=== PATIENT | male | born 1965 | race Caucasian/White ===

== ENCOUNTER 2016-04-24 15:58 | Inpatient (IN) | payer OTHER ==
[~2016-04-24] VITALS: Ht 162.6 cm; Wt 78.9 kg
--- NOTE | 2016-04-24 16:14 | NUR ---
Informed waiting has been performed.
--- NOTE | 2016-04-24 16:14 | NUR ---
TRIAGE: PT SENT TO ER BY DR DRAKE FOR ABNORMAL LAB VALUES. STATES HIS BLOOD COUNT WAS 23. REPORTS FEELING DIZZY, WEAK AND NO ENERGY X COUPLE MONTHS. HX OF ANEMIA BUT HAS NEVER REQUIRED BLOOD TRANSFUSION IN THE PAST.
--- NOTE | 2016-04-24 16:45 | NUR ---
PT AMB TO ROOM 10, CHANGED INTO GOWN.
--- NOTE | 2016-04-24 16:50 | NUR ---
BOOKER LUCAS IN FOR EVAL.
[2016-04-24] MEDS ORDERED: LISINOPRIL-HCT1 EAC1 PO (17:05)
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
[2016-04-24] MEDS ORDERED: PROAIR HFA8.5 GM INH (17:06)
[2016-04-24] MEDS ORDERED: SPIRIVA18 MCG INH (17:07)
[2016-04-24] MEDS ORDERED: PROTONIX40 M3 PO (17:08)
[2016-04-24 17:45] LABS: PT 12.1 SEC (9.4-12.5); PTT 23 SEC (25-37)
[2016-04-24 17:56] LABS: HEMATOCRIT 20.5 % (42-52); MEAN CORPUSCULAR HGB 14.9 PG (27.0-31.0); MEAN CORPUSCULAR HGB CONC 27.3 G/DL (33.0-37.0); MEAN CORPUSCULAR VOLUME 54.4 FL (80.0-94.0); MEAN PLATELET VOLUME 7.8 FL (7.4-10.4); PLATELET COUNT 232 /CUMM (130-400); RBC DISTRIBUTION WIDTH 20.9 % (11.5-14.5); RED BLOOD CELL CT 3.76 /CUMM (4.70-6.10); WHITE BLOOD CELL COUNT 4.2 /CUMM (4.8-10.8)
--- NOTE | 2016-04-24 18:09 | NUR ---
CRITICAL TEST RESULTS [id number] MARTELL MARCOS 50 M TESTS AND RESULTS: HGB 5.6 Results received and read back by: LIAM MCCALL Results received date and time: 04/24/16 180 The following provider was notified of the results, and read the results back: АЛЕКСАНДР CELESTE Notified date and time: 04/24/16 at 1809
--- NOTE | 2016-04-24 18:35 | NUR ---
FIRST UNIT [facility] INFUSING.
--- NOTE | 2016-04-24 19:00 | NUR ---
PT TO ROOM 18 VIA STRETCHER. MOVED TO HOSPITAL BED. REPORT GIVEN TO ANN MARIE FLORES.
--- NOTE | 2016-04-24 19:01 | NUR ---
PROVIDED CLEAR LIQUIDS
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
--- NOTE | 2016-04-24 21:25 | Admission Certification ---
Admission Certification Certification Statement - As attending physician, I certify that at the time of - admission, based on clinical presentation, severity of - symptoms, need for further diagnostic testing and - therapeutic interventions, and risk of adverse outcomes - without in-hospital treatment, in my clinical assessment, - this patient requires an acute hospital stay for a minimum - of two nights or longer. I have also considered psychsocial - factors such as support system, advanced age, financial - issues, cognitive issues, and failed out-patient treatments, - past re-admission history, safety of patient, and lack of - compliance as applicable. Specific rationale supporting this admission is: Symptomatic anemia, acute on chronic microcytic anemia with iron deficiency.
[2016-04-24 23:16] VITALS: BP 141/80
[2016-04-24 23:58] LABS: HEMATOCRIT 21.2 % (42-52); MEAN PLATELET VOLUME 8.1 FL (7.4-10.4); PLATELET COUNT 195 /CUMM (130-400); RBC DISTRIBUTION WIDTH 25.1 % (11.5-14.5); RED BLOOD CELL CT 3.62 /CUMM (4.70-6.10); WHITE BLOOD CELL COUNT 4.1 /CUMM (4.8-10.8)
[2016-04-25] VITALS: BP 132/86
[2016-04-25 00:04] LABS: MEAN CORPUSCULAR HGB 16.9 PG (27.0-31.0); MEAN CORPUSCULAR VOLUME 58.4 FL (80.0-94.0)
--- NOTE | 2016-04-25 02:11 | NUR ---
RESPIRATORY THERAPY NOTE: RECIEVED REQUEST FOR NOCTURNAL NPPV, FOUND PATIENT SLEEPING, POX = 98% ON ROOM AIR UPON AROUSAL, PATIENT NOTES HX OF MATILDE & HOME USE OF NPPV, UNCLEAR TO SETTINGS, ON FURTHER INQUIRY PATIENT NOTES HIS DEVICE HAS HUMIDITY & THAT HIS MOUTH IS ALREADY DRY, THIS COSMETIC SALES ALLUDED TO THE FACT HE MIGHT BRING HIS PERSONAL DEVICE IN IF HE DESIRED HUMIDITY @ WHICH POINT PATIENT NOTED HIS DEVICE IS NOT WORKING & HE HASN'T USED IT IN MONTHS, PATIENT OPTED TO REMAINS OFF NPPV @ THIS TIME.
--- NOTE | 2016-04-25 05:41 | NUR ---
AT 0006 HCT:21.2 HGB: 6.1. MD RODRIGUEZ MADE AWARE. 1 UNIT BLOOD ORDERED AND ADMINISTERED. PRE-VITAL SIGNS 98.2, 76, 20, 142/81. 15 MIN VITALS 97.9, 72, 135/82, 20, NO ADVERSE REACTIONS. POST VITALS: 97.7, 78, 20, 142/78.
[2016-04-25 06:02] VITALS: BP 143/89
--- NOTE | 2016-04-25 06:23 | PN- Housestaff ---
DAYAN ANDINO,MEJIA 04/25/16 0622: Subjective Follow-up For: Acute blood loss anemia Subjective: Patient seen and examined at bedside. He is alert, awake and oriented x3, resting comfortably in bed, waiting for EGD. Repeatedly complaining of hunger and stating that he hasn't eaten since yesterday. Patient currently denies any n /v, hematemesis, hemoptysis, melena, any stool changes. He is not sure whether his dizziness and weakness have improved as he has been bed bound since the admission. Currently getting transfused (3rd unit). Vitals stable. Review of Systems Constitutional: Reports: see HPI. Objective Last 24 Hrs of Vital Signs/I&O Vital Signs Date Time Temp Pulse Resp B/P Pulse O2 O2 Flow FiO2 Ox Delivery Rate 04/25 0720 97.8 71 98 143/89 04/25 0602 97.8 71 20 143/89 98 Room Air 04/25 0000 97.9 76 20 132/86 04/24 2316 97.4 76 16 141/80 100 04/24 2249 97.4 76 16 141/80 100 Room Air 04/24 1850 98.0 80 20 131/68 100 Room Air 04/24 1835 98.4 95 20 126/77 100 Room Air 04/24 1610 98.8 97 20 129/73 97 Room Air Intake & Output 04/25 1600 04/25 0800 04/25 0000 Intake Total 660 Output Total 1000 Balance -340 Intake, IV 660 Output, Urine 1000 Patient 78.925 kg Weight Physical Exam General Appearance: Alert, Oriented X3, Cooperative, No Acute Distress Other Physical Findings: Skin Many tattoos , healed abdominal scars HEENT Atraumatic, PERRLA, EOMI, pale conjunctiva, lips red most likely due to sl[place] ice Neck Supple, No JVD, +2 Carotid Pulse wo Bruit Lymphatic Axillary nl, Cervical nl Cardiovascular Regular Rate, Normal S1, Normal S2, No Murmurs, Gallops, Rubs Lungs Clear to Auscultation, Normal Air Movement Abdomen Normal Bowel Sounds, Soft, No Tenderness, no anal fissures, stool guaiac negative Neurological Normal Speech Extremities No Cyanosis, No Edema, Normal Pulses, No Tenderness/Swelling, normal cap refill Current Medications: Current Medications Sig/Jc Start time Last Medication Dose Route Stop Time Status Admin Acetaminophen 650 MG Q8P PRN 04/25 0045 AC PO Acetaminophen 650 MG Q8P PRN 04/24 2114 DC PO Acetaminophen 1,000 MG Q12P PRN 04/24 2114 DC IV Chlorhexidine 1 GM .STK-MED ONE 04/25 1254 DC Gluconate TOP 04/25 1255 Dextrose/Sodium 1,000 ML Q20H 04/25 1200 AC Chloride IV Morphine Sulfate 4 MG Q6-PRN PRN 04/24 2114 AC IV Nicotine 0 .STK-MED ONE 04/24 2218 DC TOP Nicotine 14 MG DAILY 04/24 2199 AC TOP Ondansetron HCl 4 MG Q8P PRN 04/24 2114 AC IV Oxycodone HCl 5 MG Q6 PRN 04/25 44 AC PO Pantoprazole Sodium 40 MG BID 04/25 2199 AC IV Pantoprazole Sodium 40 MG DAILY 04/25 1000 DC 04/25 IV 0932 Pantoprazole Sodium 0 .STK-MED ONE 04/24 1724 DC IV Pantoprazole Sodium 40 MG ONCE ONE 04/24 1715 DC 04/24 IV 04/24 1716 1725 Sodium Chloride 1,000 ML .Q10H 04/24 2114 DC 04/25 IV 0848 Tiotropium [place] 1 PUF DAILY 04/25 1000 AC 04/25 INH 0932 Last 24 Hrs of Lab/Ramiro Results Last 24 Hrs of Labs/Mics: Laboratory Tests 04/25/16 0628: Anion Gap 12, Estimated GFR > 60, BUN/Creatinine Ratio 15.7, CBC w Diff MAN DIFF ORDERED, RBC 4.12 L, MCV 60.2 L, MCH 17.8 L, RDW 26.9 H, MPV 7.7, Segmented Neutrophils 62, Lymphocytes 25, Monocytes 8, Eosinophils 5, Nucleated RBCs 1 H, Platelet Estimate ADEQUATE, Polychromasia 1+, Hypochromic-Microcytic 2+, Poikilocytosis 2+, Anisocytosis 3+, Microcytic Cells 3+, Ovalocytes 1+, Stomatocytes FEW, Elliptocytes 1+, PUBS MCHC 29.5 L, Fld Total RBCs Counted 100 04/24/16 2340: CBC w Diff MAN DIFF ORDERED, RBC 3.62 L, MCV 58.4 L, MCH 16.9 L, RDW 25.1 H, MPV 8.1, Segmented Neutrophils 48, Lymphocytes 37, Monocytes 10 H, Eosinophils 5, Platelet Estimate ADEQUATE, Polychromasia 1+, Hypochromic-Microcytic 2+, Poikilocytosis 3+, Anisocytosis 3+, Microcytic Cells 3+, Ovalocytes 1+, Stomatocytes 1+, Elliptocytes 1+, PUBS MCHC 29.0 L, Retic Count 1.82, Fld Total RBCs Counted 100 04/24/16 2310: Urine Opiates Screen < 100.00, Methadone Screen < 40, Barbiturate Screen < 60, Ur Phencyclidine Scrn < 6.00, Amphetamines Screen < 100, U Benzodiazepines Scrn < 85, Urine Cocaine Screen < 50, Urine Cannabis Screen > 80.00 H, Urine Color YEL, Urine Clarity CLEAR, Urine pH 6.0, Ur Specific [place] 1.025, Urine Protein NEG, Urine Ketones NEG, Urine Nitrite NEG, Urine Bilirubin NEG, Urine Urobilinogen 0.2, Ur Leukocyte Esterase NEG, Ur Microscopic EXAM NOT REQUIRED, Urine Hemoglobin NEG, Urine Glucose NEG 04/24/16 1710: Hemoglobin A1c Pending 04/24/16 1710: Anion Gap 15, Estimated GFR > 60, BUN/Creatinine Ratio 18.8, Glucose 99, Calcium 9.1, Iron < 10 L, TIBC 537 H, Ferritin 3.1 L, Total Bilirubin 0.6, AST 21, ALT 11 L, Alkaline Phosphatase 46, Lactate Dehydrogenase 385, Total Protein 7.4 , Albumin 4.1, Globulin 3.3, Albumin/Globulin Ratio 1.2, Vitamin B12 256, Folate 11.5, PT 12.1, INR 1.15, APTT 23 L, CBC w Diff MAN DIFF ORDERED, RBC 3.76 L, MCV 54.4 L, MCH 14.9 L, RDW 20.9 H, MPV 7.8, Segmented Neutrophils 62, Lymphocytes 29, Monocytes 7, Eosinophils 2, Nucleated RBCs 1 H, Platelet Estimate ADEQUATE, Hypochromic-Microcytic 3+, Poikilocytosis 2+, Microcytic Cells 1+, Target Cells 1+, Stomatocytes 2+, PUBS MCHC 27.3 L, Serum Alcohol 26.0 Assessment/Plan Assessment: 50 year old gentleman, active smoker with h/o alcohol dependence, HTN, COPD, MATILDE noncompliant with CPAP, chronic anemia, PUD/ GERD, anal fissues s/p sphincterotomy, admitted for anemia (H/H 6.4/23.3). He presents with cheif complaints of exertional dyspnea, lightheadedness, weakness and lethargy, most likely 2/2 acute GI blood loss. # Acute on chronic anemia most likely 2/2 acute GI blood loss H/H upon admission was 5 and 20. Fe studies consistent with Fe deificency most likely 2/2 acute blood loss given his h/o PUD with recent episodes of coffee- ground emesis, heartburn, epigastric discomfort and melena 2 weeks ago. - EGD (2013): esophageal ulcer at GE junction, hiatal hernia with Owen erosions. Pathology shows chronic gastritis, neg for H.pylori. - Colonoscopy (2013): Rectal polyps with left sided diverticulosis and internal hemorrhoids. Pathology shows benign hyperplastic polyp. He did not follow up with GI thereafter. * Received 2 units of pRBC with improvement in Hgb from 5.6 to 7.3. Currently getting third unit. * Check CBC daily, recheck at 6PM tonight * Follow H. pylori serology & stool antigen * Start D5NS1/2 at 75cc/hr (keep the rate low to avoid hemodilution) * Start iron supplements * GI consulted, appreciate recs * Follow EGD results * IV protonix BID per GI rec * Hold antihypertensives (patient takes lisinopril 20mg and HCTZ 25mg at home.) * Follow UA for hematuria * Check [place] stool test * Avoid NSAIDs and any other medications with risk of GI bleed # Alcohol dependence - Serum alcohol 26, Utox positive for marijuana * Cont CIWA protocol * Hold off starting scheduled benzo for now # Nicotine dependence * Nicotine patch # Hand numbness * Follow HbA1C * Consider starting gabapentin if it doesn't improve # Hypertension * Hold hypetensive meds, lisinopril 20, hctz 25 # COPD * Continue albuterol, spiriva # MATILDE * TRC treatment as needed * CPAP during night - Diet: Clear liquid, then NPO for EGD - Pain pathway: mild - DVT ppx: alps, hold pharm prophylaxis for anemia - Code: Full Problem List: 1. Symptomatic anemia 2. Alcohol dependence 3. COPD (chronic obstructive pulmonary disease) 4. MATILDE (obstructive sleep apnea) Pain Ratin Pain Location: 0 Pain Goal: Remain pain free Pain Plan: Mild pathway Tomorrow's Labs & Rationales: CBC BID to check H/H in the setting of anemia RAKESH DISLA MD 04/25/16 1533: Attending MD Review Statement Attending Statement Attending MD Statement: examined this patient, discuss w/resident/PA/NATIONAL SALES REPRESENTATIVE, agreed w/resident/PA/NATIONAL SALES REPRESENTATIVE, reviewed EMR data (avail), discussed with nursing, discussed with case mgmt, amended to note Attending Assessment/Plan: Patient seen and examined. Resting comfortably not in acute distress. He remains hemodynamically stable. EGD was done earlier today that shows esophagitis. Lab workup is consistent with iron deficiency anemia. Is currently comfortable and not in acute distress. Recommendations: -Discontinue IV fluids and advance diet as recommended by the GI service. -He is status post transfusion of 3 PRBCs. Repeat CBC this evening and in the morning. -Hemoglobin goal is greater than 7. -If his hemoglobin is stable morning he may be discharged home tomorrow. He will require supplementation. -He'll require follow-up with the ID service and possible surgical service for repair of his hiatial hernia as this may be contributing to his persistent erosive esophagitis. -
[2016-04-25 06:38] LABS: HEMATOCRIT 24.8 % (42-52); MEAN CORPUSCULAR HGB 17.8 PG (27.0-31.0); MEAN CORPUSCULAR HGB CONC 29.5 G/DL (33.0-37.0); MEAN CORPUSCULAR VOLUME 60.2 FL (80.0-94.0); MEAN PLATELET VOLUME 7.7 FL (7.4-10.4); PLATELET COUNT 202 /CUMM (130-400); RBC DISTRIBUTION WIDTH 26.9 % (11.5-14.5); RED BLOOD CELL CT 4.12 /CUMM (4.70-6.10); WHITE BLOOD CELL COUNT 3.7 /CUMM (4.8-10.8)
--- NOTE | 2016-04-25 07:00 | NUR ---
CRITICAL LAB: HCT; 7.3 HGB:24.8. MD RODRIGUEZ NOTIFIED, I UNIT BLOOD ORDERED AND ADMINISTERED. VSS. NO REACTION. WILL CONTINUE TO MONITOR.
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
--- NOTE | 2016-04-25 09:23 | NUR ---
3RD UNIT OF BLOOD COMPLETE. NO REACTIONS.
--- NOTE | 2016-04-25 11:30 | NUR ---
PT AMBULATORY AROUND ED WITH NO DIFFICULTY
--- NOTE | 2016-04-25 12:10 | NUR ---
[facility] ASSIGNMENT [phone]
--- NOTE | 2016-04-25 12:41 | NUR ---
TALKED TO DISTRIBUTION WHO STATED THEY WILL TAKE PATIENT UPSTAIRS FROM GI SUITE, SPOKE TO POLINA FLORES AND INFORMED HER OF SAME, THEN CALLED GI SUITE AND ASKED THEM TO CALL REPORT TO POLINA FLORES ON 2NB AFTER PROCEDURE. POLINA FOLRES OK WITH TRANSPORT PLAN. DISTRIBUTION STATING THEY WILL BRING PT TO FLOOR AND THEN RETURN TO ED RETRIEVE ED SUMMARY AND PT BELONGINGS.
--- NOTE | 2016-04-25 12:56 | Proc Note Endoscopy ---
Endoscopy Procedure Medical History: unchanged (see meditech consult) Mental Status: alert/oriented Heart/Lung Eval Prior to Sedation: within normal limits Candidate for Sedation? Yes Procedure Date: 04/25/16 Procedure Type: EGD w/biopsy Application Development Team Lead: Paul Hurtado MD ASA Classification: II Indications: Recurrent anemia, hematemesis. Instrument: diagnostic gastroscope Meds Received: MAC Patient's Tolerance: good Complications: none Extent Reached: second part of duodenum Procedure: After getting written informed consent the patient was placed in the left lateral decubitus position with pulse oximetry, cardiac monitoring, and supplemental oxygen given. A bite block was inserted and IV sedation was given until the desired effect was achieved. A high definition upper Olympus endoscope was then inserted into the mouth and advanced to the second portion of the duodenum with little difficulty. Retroflexed views and photodocumentation was obtained. Findings: Esophagus: The upper esophageal mucosa was grossly normal in appearance. Starting at 32 cm from the incisors there were a few linear erosions which extended to the Z line at 37 cm from the incisors which was moderately erythematous, and ulcerated, but was easily traversable by the upper endoscope. The hiatal narrowing was at approximately 43 cm from the incisors accounting for a 6 cm hiatal hernia. Biopsies were obtained from the Z line with cold biopsy forceps and were sent pathology further valuation. Stomach: The gastric mucosa was grossly normal in appearance. There were no ulcers, erosions, or masses appreciated. Distention and peristalsis of the stomach appeared normal. Retroflexed views revealed a moderate size hiatal hernia, but no obvious Harish erosions were appreciated. Duodenum: The duodenal bulb, sweep, and folds were grossly normal appearance. Impression: 1. LA grade B to C reflux esophagitis status post biopsies. 2. 6 cm sliding hiatal hernia without evident harish erosions. Recommendations: 1. Would change to an oral PPI twice a day for now. 2. He should follow an antireflux regimen. 3. He should be transfused to maintain his hemoglobin greater than 7 or as per cardiology recommendations. 4. He should avoid NSAIDs. 5. He should follow up the pathology results with me as an outpatient. 6. Based on the results of the pathology consideration will be given to repeat the endoscopy in 3-6 months to confirm healing of the esophagitis and rule out underlying Bejarano's esophagus. 7. Consideration should be given to surgically repair his hiatal hernia considering the recurrent anemia and persistent erosive disease on a PPI. CC: NOELLE ANDINO,SHANT Junior; JESS ANDINO,JOHANNA Maynard
[2016-04-25 13:35] VITALS: BP 168/100
--- NOTE | 2016-04-25 13:45 | NUR ---
NURSING NOTE: PT ARRIVED TO FLOOR FROM ER/GI VIA STRETCHER. PT A&O, OOB AMBULATING INDEPENDENTLY. PB ELEVATED AT 168/100 - MEJIA HANLEY #[phone] AWARE. WILL CONTINUE TO SATURDAY.
[2016-04-25 13:56] VITALS: BP 168/100
[2016-04-25 16:13] VITALS: BP 132/84
[2016-04-25 19:03] LABS: MEAN CORPUSCULAR HGB 18.4 PG (27.0-31.0); MEAN CORPUSCULAR HGB CONC 29.3 G/DL (33.0-37.0); MEAN CORPUSCULAR VOLUME 62.8 FL (80.0-94.0); MEAN PLATELET VOLUME 7.6 FL (7.4-10.4); PLATELET COUNT 229 /CUMM (130-400); RBC DISTRIBUTION WIDTH 29.7 % (11.5-14.5); RED BLOOD CELL CT 4.76 /CUMM (4.70-6.10); WHITE BLOOD CELL COUNT 4.8 /CUMM (4.8-10.8)
[2016-04-25 19:06] LABS: HEMATOCRIT 29.9 % (42-52)
--- NOTE | 2016-04-25 19:16 | NUR ---
PT CURRENTYLY AMBULATING IN [place], STEADY GAIT, A&0X3, OFFERING NO COMPLAINTS.
[2016-04-25 23:44] VITALS: BP 158/96
[2016-04-26] VITALS: BP 158/96
--- NOTE | 2016-04-26 06:22 | PN- Housestaff ---
DAYAN ANDINO,MEJIA 04/26/16 0621: Subjective Follow-up For: Acute blood loss anemia Esophagitis Subjective: Patient seen and examined at bedside. Resting comfortably in bed with no complaints. Eating well with no issues. Denies any n/v, hematemesis, hemoptysis, melena, any stool changes. Remains HDS with VSS. Review of Systems Constitutional: Reports: see HPI. Objective Last 24 Hrs of Vital Signs/I&O Vital Signs Date Time Temp Pulse Resp B/P Pulse O2 O2 Flow FiO2 Ox Delivery Rate 04/26 0850 99 Room Air 04/26 0800 98.5 69 20 150/92 04/26 0749 98.5 69 20 150/92 99 Room Air 04/26 0000 97.9 74 19 158/96 04/25 2344 97.9 74 19 158/96 98 Room Air 04/25 1730 98 04/25 1652 Room Air Room Air 04/25 1613 99.0 103 20 132/84 98 Room Air 04/25 1356 97.7 90 20 168/100 100 Room Air 04/25 1335 168/100 Intake & Output 04/26 1600 04/26 0800 04/26 0000 Intake Total 720 Output Total Balance 720 Intake, Oral 720 Physical Exam General Appearance: Alert, Oriented X3, Cooperative, No Acute Distress Other Physical Findings: Skin Many tattoos , healed abdominal scars HEENT Atraumatic, PERRLA, EOMI, pale conjunctiva, lips red most likely due to romanian ice Neck Supple, No JVD, +2 Carotid Pulse wo Bruit Lymphatic Axillary nl, Cervical nl Cardiovascular Regular Rate, Normal S1, Normal S2, No Murmurs, Gallops, Rubs Lungs Clear to Auscultation, Normal Air Movement Abdomen Normal Bowel Sounds, Soft, No Tenderness, no anal fissures, stool guaiac negative Neurological Normal Speech Extremities No Cyanosis, No Edema, Normal Pulses, No Tenderness/Swelling, normal cap refill Current Medications: Current Medications Sig/Jc Start time Last Medication Dose Route Stop Time Status Admin Acetaminophen 650 MG Q8P PRN 04/25 0045 AC PO Albuterol Sulfate 3 ML Q4-PRN PRN 04/25 1700 AC INH Chlorhexidine 1 GM .STK-MED ONE 04/25 1254 DC Gluconate TOP 04/25 1255 Dextrose/Sodium 1,000 ML Q20H 04/25 1200 DC 04/25 Chloride IV 1407 Morphine Sulfate 2 MG Q6-PRN PRN 04/25 183 CAN IV Morphine Sulfate 4 MG Q6-PRN PRN 04/24 2114 DC IV Nicotine 14 MG DAILY 04/24 2199 AC TOP Omeprazole 40 MG BID 04/25 2199 AC 04/25 PO 2049 Ondansetron HCl 4 MG Q8P PRN 04/24 2114 AC IV Oxycodone HCl 5 MG Q6 PRN 04/25 0045 DC PO Pantoprazole Sodium 40 MG BID 04/25 2199 CAN IV Pantoprazole Sodium 40 MG DAILY 04/25 1000 DC 04/25 IV 0932 Sodium Chloride 1,000 ML .Q10H 04/24 211 DC 04/25 IV 0848 Tiotropium [place] 1 PUF DAILY 04/25 1000 AC 04/25 INH 0932 Last 24 Hrs of Lab/Ramiro Results Last 24 Hrs of Labs/Mics: Laboratory Tests 04/26/16 0730: CBC w Diff Pending, WBC Pending, RBC Pending, Hgb Pending, Hct Pending, MCV Pending, MCH Pending, RDW Pending, Plt Count Pending, MPV Pending, PUBS MCHC Pending 04/25/16 1805: Hemoglobin A1c Pending, CBC w Diff MAN DIFF ORDERED, RBC 4.76, MCV 62.8 L, MCH 18.4 L, RDW 29.7 H, MPV 7.6, Segmented Neutrophils 59, Band Neutrophils 2, Lymphocytes 26, Monocytes 10 H, Eosinophils 3, Nucleated RBCs 2 H, Platelet Estimate ADEQUATE, Polychromasia 1+, Hypochromic-Microcytic 2+, Poikilocytosis 1 +, Anisocytosis 2+, Microcytic Cells 3+, Ovalocytes FEW, Stomatocytes 1+, PUBS MCHC 29.3 L 04/25/16 1800: CBC w Diff Cancelled, WBC Cancelled, RBC Cancelled, Hgb Cancelled, Hct Cancelled , MCV Cancelled, MCH Cancelled, RDW Cancelled, Plt Count Cancelled, MPV Cancelled, PUBS MCHC Cancelled 04/25/16 1420: Hepatitis C Antibody NONREACTIVE Assessment/Plan Assessment: 50 year old gentleman, active smoker with h/o alcohol dependence, HTN, COPD, MATILDE noncompliant with CPAP, chronic anemia, PUD/ GERD, anal fissues s/p sphincterotomy, admitted for anemia (H/H 6.4/23.3). He presents with cheif complaints of exertional dyspnea, lightheadedness, weakness and lethargy, most likely 2/2 acute GI blood loss. # Acute on chronic anemia most likely 2/2 acute GI blood loss from esophagitis H/H upon admission was 5 and 20. Fe studies consistent with Fe deificency most likely 2/2 acute blood loss given his h/o PUD with recent episodes of coffee- ground emesis, heartburn, epigastric discomfort and melena 2 weeks ago. - EGD (04/25/16): LA grade B to C reflux esophagitis status post biopsies. 6 cm sliding hiatal hernia without evident oewn erosions. - EGD (2013): esophageal ulcer at GE junction, hiatal hernia with Owen erosions. Pathology shows chronic gastritis, neg for H.pylori. - Colonoscopy (2013): Rectal polyps with left sided diverticulosis and internal hemorrhoids. Pathology shows benign hyperplastic polyp. He did not follow up with GI thereafter. * Received 3 units of pRBC yesterday with appropriate response * Check CBC daily, trend H/H * Follow H. pylori serology & stool antigen * Discontinued D5NS1/2 at 75cc/hr yest * Cont iron supplements * GI consulted, appreciate recs * Cont PPI PO BID per GI rec * Follow [place] stool test * Avoid NSAIDs and any other medications with risk of GI bleed # Alcohol dependence - Serum alcohol 26, Utox positive for marijuana * Cont CIWA protocol * Hold off starting scheduled benzo for now * Start B12 supplement # Hiatal hernia * Refer to general surgery upon discharge # Nicotine dependence * Nicotine patch # Hand numbness * Follow HbA1C * Consider starting gabapentin if it doesn't improve # Hypertension * Resume home med lisinopril 20/hctz 25 # COPD * Continue albuterol, spiriva # MATILDE * TRC treatment as needed * CPAP during night - Diet: Clear liquid, then NPO for EGD - Pain pathway: mild - DVT ppx: alps, hold pharm prophylaxis for anemia - Code: Full Problem List: 1. Symptomatic anemia 2. Alcohol dependence 3. COPD (chronic obstructive pulmonary disease) 4. MATILDE (obstructive sleep apnea) Pain Ratin Pain Location: 0 Pain Goal: Remain pain free Pain Plan: Mild Tomorrow's Labs & Rationales: CBC to monitor for anemia KATHIA HAWTHORNE 04/26/16 1658: Attending MD Review Statement Attending Statement Attending MD Statement: examined this patient, discuss w/resident/PA/PROFESSOR OF GEOGRAPHY, agreed w/resident/PA/PROFESSOR OF GEOGRAPHY, reviewed EMR data (avail), discussed with nursing, discussed with case mgmt Attending Assessment/Plan: Patient is being discharged home today. B12 deficiency was started on supplementation. Was given 1 mg B12 intramuscularly prior to discharge and then will continue with by mouth supplementation after discharge. Patient also has iron deficiency anemia and was started on supplements.
[2016-04-26] MEDS ORDERED: OMEPRAZOLE20 M2 PO ×2 (07:41→14:47)
[2016-04-26] MEDS ORDERED: ONDANSETRON4 MG/2 M3 PO (07:41)
--- NOTE | 2016-04-26 07:45 | Patient Discharge Instructions ---
Discharge Instructions General Discharge Information You were seen/treated for: Esophagitis Anemia due to acute blood loss Special Instructions: Please follow up with Dr. Keagan Hansen (GI) and Dr. Mcgill (primary care) within 1 week of discharge. Follow up with Dr. Moreno for hiatal hernia within 1-2 week of discharge. If you have any stool color changes, blood in vomit/cough, persistent diziness or fatigue, please return to ED. Avoid alcohol and acidic food. Continue to take Protonix as instructed. Diet Continue normal diet: Yes Activity Full Activity/No Limits: Yes Acute Coronary Syndrome Inclusion Criteria At DC or during hospital stay patient has or had the following: ACS DIAGNOSIS No Discharge Core Measures Meds if any: Prescribed or Continued at Discharge Meds if any: NOT Prescribed or Continued at Discharge Congestive Heart Failure Inclusion Criteria At DC or during hospital stay patient has or had the following: CHF DIAGNOSIS No Discharge Core Measures Meds if any: Prescribed or Continued at Discharge Meds if any: NOT Prescribed or Continued at Discharge Cerebrovascular accident Inclusion Criteria At DC or during hospital stay patient has or had the following: CVA/TIA Diagnosis No Discharge Core Measures Meds if any: Prescribed or Continued at Discharge Meds if any: NOT Prescribed or Continued at Discharge Venous thromboembolism Inclusion Criteria VTE Diagnosis No VTE Type NONE VTE Confirmed by (Test) NONE Discharge Core Measures - Per Current guidelines, there needs to be overlap - treatment for the first 5 days of Warfarin therapy. - If discharged on Warfarin prior to 5 days of - overlap therapy, the patient will need to be - assessed for post discharge needs including - *Post discharge parental anticoagulation - *Warfarin and/or parental anticoagulation education - *Follow up date to check INR post discharge At least 5 days overlap therapy as Inpatient No Meds if any: Prescribed or Continued at Discharge Note: Overlap Therapy is Warfarin and Anticoagulant Meds if any: NOT Prescribed or Continued at Discharge
[2016-04-26 07:49] VITALS: BP 150/92
[2016-04-26 08:00] VITALS: BP 150/92
[2016-04-26 09:07] LABS: HEMATOCRIT 29.9 % (42-52); MEAN CORPUSCULAR HGB 18.5 PG (27.0-31.0); MEAN CORPUSCULAR HGB CONC 29.4 G/DL (33.0-37.0); MEAN CORPUSCULAR VOLUME 62.8 FL (80.0-94.0); MEAN PLATELET VOLUME 7.6 FL (7.4-10.4); PLATELET COUNT 218 /CUMM (130-400); RBC DISTRIBUTION WIDTH 29.2 % (11.5-14.5); RED BLOOD CELL CT 4.76 /CUMM (4.70-6.10); WHITE BLOOD CELL COUNT 5.4 /CUMM (4.8-10.8)
[2016-04-26] MEDS ORDERED: VITAMIN B-121000 MC3 PO (10:37)
[2016-04-26 10:55] VITALS: BP 150/92
--- NOTE | 2016-04-27 14:30 | Discharge Summary ---
See Addendum Visit Information Visit Dates Admission Date: 04/24/16 Discharge Date: 04/26/16 Hospital Course Course Attending Physician: RAKESH OLIVA M.D Primary Care Physician: NOELLE ANDINO,SHANT Junior Hospital Course: 50 year old gentleman, active smoker with h/o alcohol dependence, HTN, COPD, MATILDE noncompliant with CPAP, chronic anemia, PUD/ GERD, anal fissues s/p sphincterotomy, admitted for anemia (H/H 6.4/23.3). He presents with cheif complaints of exertional dyspnea, lightheadedness, weakness and lethargy, most likely 2/2 acute GI blood loss. # Acute on chronic anemia most likely 2/2 acute GI blood loss from esophagitis H/H upon admission was 5 and 20. Iron studies consistent with Fe deificency most likely 2/2 acute blood loss given his h/o PUD with recent episodes of coffee- ground emesis, heartburn, epigastric discomfort and melena 2 weeks ago. Patient received 3 units of pRBC on the day of admission with appropriate response. EGD was done on 04/25/16 and showed LA grade B to C reflux esophagitis status post biopsies. 6 cm sliding hiatal hernia without evident harish erosions. Biopsy obtained from GE junction showed gastric mucosa with chronic and focal acute inflammation, and adjacent reactive squamous mucosa, without significant eosinophilic infiltration. Giemsa stain was negative for helicobacter-type structures and there was no evidnece of malignancy, epithelial dysplasia or intestinal metaplasia. Patient's diet was advanced to full which he tolerated without any issues. He remained hemodynamically stable for the rest of the hospitalization. He was instructed to follow up with Dr. Hurtado. He was discharged on omeprazole at inrcreased dose of 40mg PO BID. - EGD (2013): esophageal ulcer at GE junction, hiatal hernia with Harish erosions. Pathology shows chronic gastritis, neg for H.pylori. - Colonoscopy (2013): Rectal polyps with left sided diverticulosis and internal hemorrhoids. Pathology shows benign hyperplastic polyp. He did not follow up with GI thereafter. # Alcohol dependence - Serum alcohol 26, Utox positive for marijuana. Patient was kept on CIWA protocol, although he did not require anydoses of Ativan while inpatient. Patient was started and sent home on B12 supplements. # Hiatal hernia * Pateint was provided with a referral to general surgery upon discharge. # Nicotine dependence * Patient received nicotine patch. # Hypertension * Resumed home med lisinopril 20/hctz 25 # COPD/MATILDE * Continued albuterol, spiriva * Provided TRC treatment as needed and CPAP during night Allergies: Coded Allergies: NO KNOWN ALLERGIES (04/24/16) Disposition Summary Disposition Principal Diagnosis: Esophagitis Additional Diagnosis: Hiatal hernia Discharge Disposition: home or self care Discharge Instructions General Discharge Information Code Status: Full Code Patient's Diet: Full Patient's Activity: As tolerated Follow-Up Instructions/Appts: Please follow up with Dr. Keagan Hansen (GI) and Dr. Mcgill (primary care) within 1 week of discharge. Follow up with Dr. Mercado for hiatal hernia within 1-2 week of discharge. If you have any stool color changes, blood in vomit/cough, persistent diziness or fatigue, please return to ED. Avoid alcohol and acidic food. Continue to take Protonix as instructed. Medications at Discharge Discharge Medications: Stop taking the following medications: Pantoprazole Sodium (Protonix) 40 MG TABLET. ORAL DAILY Continue taking these medications: Lisinopril/Hydrochlorothiazide (Lisinopril-Hctz 20-25 MG Tab) 20 MG-25 MG TABLET 1 Tablet ORAL DAILY Qty = 30 Comments: Last Taken: 04/26/16 Time: 11am Albuterol Sulfate (Proair Hfa) 90 MCG HFA.AER.AD 2 Puff Inhale through mouth EVERY 4-6 HOURS NEEDED as needed for COPD Qty = 9 Comments: NOT GIVEN IN HOSPITAL Tiotropium [place] (Spiriva) 18 MCG CAP.W.DEV 1 Capsule Inhale through mouth DAILY Qty = 30 Comments: Last Taken: 04/26/16 Time: 11am Start taking the following new medications: Omeprazole (Omeprazole) 20 MG CAPSULE. 40 Milligram ORAL TWICE DAILY Days = 30 No Refills Comments: Last Taken: 04/26/16 Time: 11 am Ondansetron HCl/Pf (Ondansetron HCl 4 MG/2 Ml Vial) 4 MG/2 ML VIAL 4 Milligram ORAL EVERY 8 HOURS NEEDED as needed for NAUSEA/VOMITING Days = 10 No Refills Comments: not given Cyanocobalamin (Vitamin B-12) 1,000 MCG TABLET 500 Microgram ORAL DAILY Days = 7 No Refills Comments: Last Taken: 04/26/16 Time: 11 am Copies To: NOELLE ANDINO,SHANT Junior; MARVIN ANDINO,CORI MERCADO MD,JOHANNA Maynard Attending MD Review Statement Other Findings: Dr Oliva was the attending. Please see his note for more details.- Dr Glass
== END 2016-04-26 16:00 | DRG 243 ==
LOC: ENRESERVDT → ENRESERVTM → ERH 15:58 → 2NB 18:34 → ERHI 18:34 → ENPENDDIS 18:34 → 2NB 18:34 → ERHI 19:58 → 2NB 04-25 13:36
PROVIDERS: Internal Medicine Hematology & Oncology; Physician Assistant; ADMIT Student in an Organized Health Care Education/Training Program
PROC: 30233N1 Transfusion of Nonautologous Red Blood Cells into Peripheral Vein, Percutaneous Approach (ICD-10-PCS; principal; 2016-04-24)
PROC: 0DB58ZX Excision of Esophagus, Via Natural or Artificial Opening Endoscopic, Diagnostic (ICD-10-PCS; 2016-04-25)
DX: K22.10 Ulcer of esophagus without bleeding (principal); D62 Acute posthemorrhagic anemia; D50.9 Iron deficiency anemia, unspecified; F17.200 Nicotine dependence, unspecified, uncomplicated; F10.10 Alcohol abuse, uncomplicated; Y90.1 Blood alcohol level of 20-39 mg/100 ml; Z91.19 Patient's noncompliance with other medical treatment and regimen; G47.33 Obstructive sleep apnea (adult) (pediatric); K44.9 Diaphragmatic hernia without obstruction or gangrene
CPT/HCPCS: 2NBP; ERO; 36415; 80307; 81003; 82436; 86803; 86920; 88305; 88312; 93005; 93010; 96374; 96375; G0103; G0480; J7042; P9016

== ENCOUNTER 2016-04-27 09:21 | Emergency (ER) | payer OTHER ==
[~2016-04-27] VITALS: Ht 162.6 cm; Wt 79.4 kg
[~2016-04-27 09:21] MED LIST: LISINOPRIL-HCT1 EAC1 PO; OMEPRAZOLE20 M2 PO; ONDANSETRON4 MG/2 M3 PO; PROAIR HFA8.5 GM INH; PROTONIX40 M3 PO; SPIRIVA18 MCG INH; VITAMIN B-121000 MC3 PO
[2016-04-27 09:30] VITALS: BP 137/77
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
--- NOTE | 2016-04-27 11:00 | ULTRASOUND REPORT ---
EXAMINATION: LEFT UPPER EXTREMITY VENOUS ULTRASOUND CLINICAL INFORMATION: Left wrist pain and swelling. COMPARISON: None. TECHNIQUE: Doppler spectral analysis and color flow Doppler imaging was performed of the left upper extremity with attention to the cephalic vein only in the region of this patient's clinical swelling and symptoms. Compression and augmentation maneuvers were performed. FINDINGS: There is superficial thrombophlebitis present with some thrombus present in the cephalic vein at the level of the hand and wrist. Otherwise, the remainder of the cephalic vein is normal without thrombus. IMPRESSION: Superficial thrombophlebitis with noncompressible thrombus in the cephalic vein at the level of the hand and wrist.
== END 2016-04-27 11:40 ==
LOC: ERH 09:21
DX: I80.8 Phlebitis and thrombophlebitis of other sites (principal)
CPT/HCPCS: 76881

== ENCOUNTER 2016-05-02 11:43 | Emergency (ER) | payer OTHER ==
[~2016-05-02] VITALS: Ht 162.6 cm; Wt 79.4 kg
[2016-05-02 12:23] VITALS: BP 149/91
== END 2016-05-02 14:02 | disposition admitted as inpatient to this hospital (09) ==
LOC: ERH 11:43
DX: R21 Rash and other nonspecific skin eruption (principal)

== ENCOUNTER 2016-05-14 00:56 | Emergency (ER) | payer OTHER ==
[~2016-05-14] VITALS: Ht 162.6 cm; Wt 77.1 kg
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
[2016-05-14 01:39] LABS: ABSOLUTE BASOPHIL COUNT 0 /CUMM (0.0-0.2); ABSOLUTE EOSINOPHIL COUNT 0.3 /CUMM (0.0-0.7); ABSOLUTE GRANULOCYTE CT 2.9 /CUMM (1.4-6.5); ABSOLUTE LYMPH COUNT 1.4 /CUMM (1.2-3.4); ABSOLUTE MONOCYTE COUNT 0.5 /CUMM (0.10-0.60); BASOPHIL % 0 % (0.0-2.0); EOSINOPHIL % 6.1 % (0-5); GRANULOCYTE % 56.8 % (42.2-75.2); MEAN CORPUSCULAR HGB 19.5 PG (27.0-31.0); MEAN CORPUSCULAR HGB CONC 29.7 G/DL (33.0-37.0); MEAN CORPUSCULAR VOLUME 65.8 FL (80.0-94.0); PLATELET COUNT 278 /CUMM (130-400); RBC DISTRIBUTION WIDTH 30.5 % (11.5-14.5); RED BLOOD CELL CT 4.72 /CUMM (4.70-6.10); WHITE BLOOD CELL COUNT 5.1 /CUMM (4.8-10.8)
--- NOTE | 2016-05-14 02:25 | CT SCAN REPORT ---
EXAMINATION: CT ABDOMEN AND PELVIS WITHOUT CONTRAST CLINICAL INFORMATION: Mid epigastric pain. COMPARISON: None. TECHNIQUE: Contiguous axial thin section helical images of the abdomen and pelvis were performed without oral or IV contrast. The data set was reformatted in the coronal and sagittal planes and reviewed on an independent workstation. DLP: 373 mGy-cm. FINDINGS: Within the visualized right middle and lower lobes, there is patchy multifocal groundglass opacification. The visualized portions of the heart are unremarkable. There is a moderate to large hiatal hernia present. The liver is of normal size and attenuation without focal lesions nor intrahepatic biliary ductal dilation. A normal gallbladder is identified. There is no wall thickening or discernible pericholecystic fluid. The spleen, pancreas, adrenal glands are unremarkable. Both kidneys are of normal size and attenuation without hydronephrosis or nephrolithiasis. There is no abdominal free fluid. There is neither mesenteric nor retroperitoneal lymphadenopathy. There is sigmoid diverticulosis without evidence of diverticulitis. Otherwise, unremarkable unopacified loops of small and large bowel are identified. A normal appendix is identified. There is no pelvic free fluid. The urinary bladder is unremarkable. There is neither pelvic nor inguinal lymphadenopathy. Bone windows: Neither sclerotic nor lytic bone lesions are identified. IMPRESSION: Sigmoid diverticulosis without evidence of diverticulitis. Patchy multifocal right middle and lower lobe groundglass opacification. This appearance is nonspecific, but consider infectious etiologies, including atypical infection. Moderate to large hiatal hernia.
[2016-05-14] MEDS ORDERED: OMEPRAZOLE20 M2 PO (02:36)
[2016-05-14] MEDS ORDERED: CARAFATE1 G1 PO (02:36)
[2016-05-14 03:17] VITALS: BP 123/64
== END 2016-05-14 04:00 ==
LOC: ERH 00:56
PROVIDERS: Pediatrics
DX: R10.13 Epigastric pain (principal); F10.10 Alcohol abuse, uncomplicated; I10 Essential (primary) hypertension
CPT/HCPCS: 74176; 93005; 93010; 96374; G0480

== ENCOUNTER 2016-07-17 20:52 | Emergency (ER) | payer OTHER ==
[~2016-07-17] VITALS: Ht 162.6 cm; Wt 77.1 kg
[~2016-07-17 20:52] MED LIST changes: +CARAFATE1 G1 PO
[2016-07-17 22:06] LABS: ABSOLUTE BASOPHIL COUNT 0 /CUMM (0.0-0.2); ABSOLUTE EOSINOPHIL COUNT 0.1 /CUMM (0.0-0.7); ABSOLUTE LYMPH COUNT 1.1 /CUMM (1.2-3.4); ABSOLUTE MONOCYTE COUNT 0.7 /CUMM (0.10-0.60); BASOPHIL % 0.7 % (0.0-2.0); EOSINOPHIL % 1.2 % (0-5); GRANULOCYTE % 60.8 % (42.2-75.2); HEMATOCRIT 33.2 % (42-52); MEAN CORPUSCULAR HGB 22.3 PG (27.0-31.0); MEAN CORPUSCULAR HGB CONC 31.6 G/DL (33.0-37.0); MEAN CORPUSCULAR VOLUME 70.6 FL (80.0-94.0); MEAN PLATELET VOLUME 6.7 FL (7.4-10.4); PLATELET COUNT 182 /CUMM (130-400); RBC DISTRIBUTION WIDTH 20.2 % (11.5-14.5); RED BLOOD CELL CT 4.69 /CUMM (4.70-6.10)
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
--- NOTE | 2016-07-17 23:22 | CT SCAN REPORT ---
EXAMINATION: CT ABDOMEN AND PELVIS WITH CONTRAST CLINICAL INFORMATION: Abdominal pain and distention. Evaluate for small bowel obstruction. COMPARISON: CT abdomen and pelvis 05/14/2016. TECHNIQUE: Multidetector volumetric imaging was performed of the abdomen and pelvis before and after the IV administration of 95 mL of Optiray 320 intravenous contrast. Sagittal and coronal reformatted images were obtained on the technologist's workstation. DLP: 317 mGy-cm FINDINGS: LUNG BASES: Evaluation of the included lung bases is notable for a moderate hiatal hernia. The lung bases are otherwise unremarkable. No pleural or pericardial effusions. LIVER, GALLBLADDER, AND BILIARY TREE: The liver is normal in size, shape, and attenuation. No focal hepatic lesion or biliary ductal dilatation is present. The gallbladder is unremarkable with no evidence of radiopaque gallstones, gallbladder wall thickening, or obvious pericholecystic inflammatory changes. PANCREAS: Unremarkable. SPLEEN: Unremarkable. ADRENAL GLANDS: Unremarkable. KIDNEYS AND URETERS: The kidneys are normal in size, shape, and attenuation. No hydronephrosis, hydroureter, or calculi seen. No perinephric stranding. BLADDER: Unremarkable. GASTROINTESTINAL TRACT: Normal anatomic orientation of the stomach relative to the duodenum. Normal caliber of abdominal and pelvic bowel loops, without evidence of obstruction or ileus. No circumferential bowel wall thickening with surrounding inflammatory changes to suggest an underlying infectious or inflammatory enterocolitis. Scattered colonic diverticulosis, most extensive along the descending and rectosigmoid colon, without secondary signs of acute diverticulitis. Normal-appearing appendix within the right lower quadrant of the abdomen. No organizing intra-abdominal fluid collections or free intraperitoneal air. ABDOMINAL WALL: No significant hernia is appreciated. LYMPH NODES: No significant abdominal or pelvic adenopathy. VASCULAR: Scattered atherosclerosis of the abdominal aorta and its branching vessels, without aneurysmal dilatation. Several midline defects along the ventral abdominal wall. For instance, there is a moderate supraumbilical hernia containing intraperitoneal fat. There are loops of small bowel immediately subjacent to the ostium of the hernia. However, these loops of bowel are not contained within the hernia sac. At this same level, there is a small left paramedian ventral abdominal wall hernia containing intraperitoneal fat (series 2, image 39). PELVIC VISCERA: Unremarkable. OSSEOUS STRUCTURES: No acute osseous abnormality. Mild multilevel degenerative changes of the thoracolumbar spine, most significant at L5-S1. No destructive osseous lesions. No acute vertebral compression deformities. IMPRESSION: 1. No acute findings within the abdomen or pelvis to explain patient symptomatology. Scattered colonic diverticulosis, most significant along the descending and rectosigmoid colon, without secondary signs of acute diverticulitis. 2. Colonic diverticulosis, most extensive along the descending and rectosigmoid colon, without secondary signs of acute diverticulitis. 3. Several small to moderate midline and left paramedian ventral abdominal wall defects containing intraperitoneal fat. No loops of bowel are contained within these hernias. 4. Moderate hiatal hernia.
[2016-07-18] MEDS ORDERED: ZOFRAN ODT4 M1 PO (00:35)
[2016-07-18 00:46] VITALS: BP 138/76
== END 2016-07-18 00:47 ==
LOC: ERH 20:52
PROVIDERS: Emergency Medicine
DX: K29.70 Gastritis, unspecified, without bleeding (principal)
CPT/HCPCS: 74177; 80307; 81001; 96374; 96375; G0480; J2405

== ENCOUNTER 2016-10-06 22:24 | Inpatient (IN) | payer OTHER ==
[~2016-10-06] VITALS: Ht 165.1 cm; Wt 83.5 kg
[~2016-10-06 22:24] MED LIST changes: +ZOFRAN ODT4 M1 PO
--- NOTE | 2016-10-06 22:31 | NUR ---
BIBA FOR C/O COPD EXACERBATION THAT STARTED 3 DAYS AGO WITH BILATERAL FEET SWELLING AND INCREASED FATIGUE. PT REPORTS HASN'T TAKEN BP MEDICATIONS IN 3 DAYS HE CAN'T REFILL THEM. BP IN ROUTE 170/100, HR 90, AND 98% ON ROOM AIR WITH A GLUCOSE OF 156. PT HAS BEEN USING AT HOME INHALER WITH NO RELIEF. IN NAD UPON ARRIVAL, RESP EVEN AND NONLABORED, EQUAL RISE AND FALL OF THE CHEST.
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
--- NOTE | 2016-10-06 22:52 | NUR ---
PT MEDICATED WITH LASIX PER EMAR.
--- NOTE | 2016-10-06 22:52 | NUR ---
SSTX2, LAV, BLUE AND WATTS TOP TUBES SENT TO LAB.
--- NOTE | 2016-10-06 22:53 | NUR ---
XRAY AT BEDSIDE.
--- NOTE | 2016-10-06 23:00 | RADIOLOGY REPORT ---
EXAMINATION: XR PORTABLE CHEST CLINICAL INFORMATION: Orthopnea. Evaluate for pulmonary edema. COMPARISON: Multiple priors, most recent chest radiograph dated 03/30/2011. TECHNIQUE: Portable frontal view of the chest was obtained. FINDINGS: No airspace consolidation. No pleural effusion or pneumothorax. Stable cardiomediastinal silhouette. No acute osseous abnormality. IMPRESSION: No acute cardiopulmonary process.
--- NOTE | 2016-10-06 23:02 | NUR ---
URINE TRIO SENT BY THIS [facility].
[2016-10-06 23:03] LABS: ABSOLUTE BASOPHIL COUNT 0 /CUMM (0.0-0.2); ABSOLUTE EOSINOPHIL COUNT 0.2 /CUMM (0.0-0.7); ABSOLUTE GRANULOCYTE CT 1.9 /CUMM (1.4-6.5); ABSOLUTE LYMPH COUNT 1.3 /CUMM (1.2-3.4); ABSOLUTE MONOCYTE COUNT 0.6 /CUMM (0.10-0.60); BASOPHIL % 0.9 % (0.0-2.0); EOSINOPHIL % 4.7 % (0-5); GRANULOCYTE % 47.6 % (42.2-75.2); HEMATOCRIT 25.5 % (42-52); MEAN CORPUSCULAR HGB 21.5 PG (27.0-31.0); MEAN CORPUSCULAR HGB CONC 30.8 G/DL (33.0-37.0); MEAN CORPUSCULAR VOLUME 69.9 FL (80.0-94.0); MEAN PLATELET VOLUME 6.8 FL (7.4-10.4); PLATELET COUNT 210 /CUMM (130-400); RBC DISTRIBUTION WIDTH 18.4 % (11.5-14.5); RED BLOOD CELL CT 3.65 /CUMM (4.70-6.10); WHITE BLOOD CELL COUNT 4.1 /CUMM (4.8-10.8)
--- NOTE | 2016-10-07 00:35 | NUR ---
RESP AT BEDSIDE FOR ABG DRAW.
--- NOTE | 2016-10-07 00:53 | NUR ---
PT TO AND FROM RESTROOM WITH EVEN AND STEADY GAIT.
--- NOTE | 2016-10-07 00:59 | NUR ---
PT PLACED ON AUTO PAP 6-20 BY RINKU FROM RESP.
--- NOTE | 2016-10-07 01:16 | NUR ---
REPORT GIVEN TO MARK PULIDO ON TELEMETRY.
--- NOTE | 2016-10-07 01:17 | NUR ---
HOUSESTAFF AT BEDSIDE FOR EVAL.
--- NOTE | 2016-10-07 01:18 | NUR ---
PT TO ROOM 185 BED 2
[2016-10-07] MEDS ORDERED: SPIRIVA18 MCG INH ×2 (01:28→04:53)
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
[2016-10-07 02:17] VITALS: BP 182/100
--- NOTE | 2016-10-07 03:48 | Admission Certification ---
Admission Certification Certification Statement - As attending physician, I certify that at the time of - admission, based on clinical presentation, severity of - symptoms, need for further diagnostic testing and - therapeutic interventions, and risk of adverse outcomes - without in-hospital treatment, in my clinical assessment, - this patient requires an acute hospital stay for a minimum - of two nights or longer. I have also considered psychsocial - factors such as support system, advanced age, financial - issues, cognitive issues, and failed out-patient treatments, - past re-admission history, safety of patient, and lack of - compliance as applicable. Specific rationale supporting this admission is: Acute worsening of dyspnea
[2016-10-07 04:17] VITALS: BP 154/88
[2016-10-07] MEDS ORDERED: OLANZAPINE5 M2 PO (04:53)
[2016-10-07 08:04] VITALS: BP 146/86
[2016-10-07 08:37] LABS: ABSOLUTE BASOPHIL COUNT 0 /CUMM (0.0-0.2); ABSOLUTE EOSINOPHIL COUNT 0.2 /CUMM (0.0-0.7); ABSOLUTE GRANULOCYTE CT 1.9 /CUMM (1.4-6.5); ABSOLUTE MONOCYTE COUNT 0.7 /CUMM (0.10-0.60); BASOPHIL % 0.4 % (0.0-2.0); EOSINOPHIL % 4.6 % (0-5); GRANULOCYTE % 49.6 % (42.2-75.2); HEMATOCRIT 26.2 % (42-52); MEAN CORPUSCULAR HGB 21.4 PG (27.0-31.0); MEAN CORPUSCULAR HGB CONC 30.5 G/DL (33.0-37.0); MEAN CORPUSCULAR VOLUME 70.1 FL (80.0-94.0); MEAN PLATELET VOLUME 7.4 FL (7.4-10.4); PLATELET COUNT 202 /CUMM (130-400); RBC DISTRIBUTION WIDTH 18.9 % (11.5-14.5); RED BLOOD CELL CT 3.73 /CUMM (4.70-6.10); WHITE BLOOD CELL COUNT 3.8 /CUMM (4.8-10.8)
--- NOTE | 2016-10-07 12:28 | PN- Att Addend ---
Attending Addendum Attending Brief Note "51-year-old male with a past medical history significant for COPD, MATILDE, chronic anemia, GERD and esophageal ulcer presented with acute worsening of shortness of breath and lower extremity swelling since 3 days. Patient saturating well on room air, ABG unremarkable, blood pressure was elevated in the route, recorded by EMS. He had bilateral crackles on pulmonary auscultation in ER, received 40 mg of IV Lasix and symptomatically improved. By the time, we saw him he did not have significant crackles or JVD but does have bilateral lower extremity edema. He is proBNP is not impressive. He had an episode of acute worsening of shortness of breath in ER objectified by ER physician, he was started on CPAP. Probably patient had volume overload secondary to elevated blood pressure/ afterload, as he has not been taking his medications since last 2-3 days. Heart failure should be ruled out." ASSESSMENT 1. Acute respiratory distress 2. Rule out heart failure 3. History of MATILDE, COPD, chronic anemia secondary to GI blood loss 4. Hypertension PLAN - Admit to telemetry - Continuous telemetry monitoring - Trend troponin and EKG negative - 2-D echocardiogram f/u - Lasix 40 mg IV daily - Continue CPAP throughout the night - negative d-dimer - Resume his lisinopril and amlodipine, hold HCTZ and resume if blood pressure consistently elevated - Consult pulmonology and cardiology placed.
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
[2016-10-07 16:46] VITALS: BP 142/70
[2016-10-07 23:40] VITALS: BP 132/76
[2016-10-08 07:53] VITALS: BP 124/86
[2016-10-08 09:26] VITALS: BP 124/86
[2016-10-08] MEDS ORDERED: LASIX20 M1 PO (11:10)
--- NOTE | 2016-10-08 11:17 | Patient Discharge Instructions ---
Discharge Instructions General Discharge Information You were seen/treated for: You are here because of shortness of breath and bilaetral leg edema, we did blood work up and echocardiogram, not conveincing to say as heart failure , but we treated with water pills. Special Instructions: please follow up with your PCP with in a week of discharge. 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 a week of discharge Please take the medication as before Avoid smoking Diet Continue normal diet: No Recommended Diet: Heart Healthy Activity Full Activity/No Limits: No (as tolerated) Acute Coronary Syndrome Inclusion Criteria At DC or during hospital stay patient has or had the following: ACS DIAGNOSIS No Discharge Core Measures Meds if any: Prescribed or Continued at Discharge Meds if any: NOT Prescribed or Continued at Discharge Congestive Heart Failure Inclusion Criteria At DC or during hospital stay patient has or had the following: CHF DIAGNOSIS No Discharge Core Measures Meds if any: Prescribed or Continued at Discharge Meds if any: NOT Prescribed or Continued at Discharge Cerebrovascular accident Inclusion Criteria At DC or during hospital stay patient has or had the following: CVA/TIA Diagnosis No Discharge Core Measures Meds if any: Prescribed or Continued at Discharge Meds if any: NOT Prescribed or Continued at Discharge Venous thromboembolism Inclusion Criteria VTE Diagnosis No Discharge Core Measures - Per Current guidelines, there needs to be overlap - treatment for the first 5 days of Warfarin therapy. - If discharged on Warfarin prior to 5 days of - overlap therapy, the patient will need to be - assessed for post discharge needs including - *Post discharge parental anticoagulation - *Warfarin and/or parental anticoagulation education - *Follow up date to check INR post discharge Meds if any: Prescribed or Continued at Discharge Note: Overlap Therapy is Warfarin and Anticoagulant Meds if any: NOT Prescribed or Continued at Discharge
--- NOTE | 2016-10-08 11:35 | ECHOCARDIOGRAM REPORT ---
MARTELL MARCOS Age: 51 : 1965 Gender: M Exam Date: 10/07/2016 11:21 Exam Location: 1 [address] Ht (in): 65 Wt (lb): 175 BSA: 1.93 BP: 154 / 88 Ordering Physician: ALEXANDER WOLFF MD Referring Physician: Cristian Aguilar MD Technologist: June Umana [facility] Room Number: 185-02 Indications: HEART FAILURE Rhythm: Sinus Technical Quality: Fair FINDINGS Left Ventricle Normal size left ventricle. Mild concentric left ventricular hypertrophy. No obvious regional wall motion abnormalities. Normal left ventricular wall motion. "pseudonormal" filling pattern of the left ventricle for age (stage 2 diastolic dysfunction). Mildly increased left ventricular outflow tract velocity (1.6 m/s). Right Ventricle Normal right ventricular size and function. Right Atrium Normal right atrial size. Left Atrium Normal left atrial size. Mitral Valve Mild mitral annular calcification. Mitral valve mildly thickened. Trace mitral regurgitation. Aortic Valve Trileaflet aortic valve. Mild aortic sclerosis. No hemodynamically significant aortic stenosis. No aortic regurgitation. Tricuspid Valve Structurally normal tricuspid valve. Trace tricuspid regurgitation. No evidence of pulmonary hypertension. Right ventricular systolic pressure estimated to be within the normal range at 25 mmHg. Pulmonic Valve Pulmonic valve not well visualized, grossly normal. Trace pulmonic regurgitation. Pericardium No pericardial effusion. Great Vessels Normal size aortic root. CONCLUSIONS Normal size left ventricle. Mild concentric left ventricular hypertrophy. Normal left ventricular wall motion. Mildly increased left ventricular outflow tract velocity (1.6 m/s). Normal right ventricular size and function. Normal atrial size. Trace mitral regurgitation. Trace tricuspid regurgitation. No evidence of pulmonary hypertension. Trace pulmonic regurgitation. Cristian Aguilar M.D. (Electronically Signed) Final Date: 08 October 2016 11:34 MEASUREMENTS (Male / Female) Normal Values 2D ECHO LV Diastolic Diameter PLAX 4.1 cm 4.2 - 5.9 / 3.9 - 5.3 cm LV Systolic Diameter PLAX 2.6 cm 2.1 - 4.0 cm LV Fractional Shortening PLAX 36.6 % 25 - 46 % LV Ejection Fraction 2D Teich 66.8 % IVS Diastolic Thickness 1.2 cm LVPW Diastolic Thickness 1.2 cm LV Relative Wall Thickness 0.6 RV Internal Dim ED PLAX 2.7 cm 1.9 - 3.8 cm LVOT Diameter 2.0 cm Aortic Root Diameter 3.1 cm LA Systolic Diameter LX 3.8 cm 3.0 - 4.0 / 2.7 - 3.8 cm LA Volume 40.0 cm 18 - 58 / 22 - 52 cm Ascending Aorta Diameter 3.2 cm DOPPLER AV Peak Velocity 179.0 cm/s AV Peak Gradient 12.8 mmHg AV Mean Velocity 123.0 cm/s AV Mean Gradient 7.0 mmHg AV Velocity Time Integral 34.4 cm LVOT Peak Velocity 164.0 cm/s LVOT Peak Gradient 10.8 mmHg LVOT Mean Velocity 105.0 cm/s LVOT Mean Gradient 5.0 mmHg LVOT Velocity Time Integral 27.8 cm LVOT Stroke Volume 87.3 cm AV Area Cont Eq vti 2.5 cm AV Area Cont Eq pk 2.9 cm MV Peak Velocity 113.0 cm/s MV Peak Gradient 5.1 mmHg MV Mean Velocity 61.6 cm/s MV Mean Gradient 2.0 mmHg Mitral E Point Velocity 89.8 cm/s Mitral A Point Velocity 81.9 cm/s Mitral E to A Ratio 1.1 MV PHT Velocity 116.0 cm/s MV Deceleration [place] 343.0 cm/s MV Pressure Half Time 101.5 ms MV Area PHT 2.2 cm MV Deceleration Time 264.0 ms TR Peak Velocity 221.0 cm/s TR Peak Gradient 19.5 mmHg Right Atrial Pressure 5.0 mmHg Pulmonary Artery Systolic Pressu 24.5 mmHg Right Ventricular Systolic Press 24.5 mmHg PV Peak Velocity 130.0 cm/s PV Peak Gradient 6.8 mmHg PV Mean Velocity 92.5 cm/s PV Mean Gradient 4.0 mmHg PV Velocity Time Integral 31.3 cm LV E' Lateral Velocity 8.4 cm/s Mitral E to LV E' Lateral Ratio 10.7 LV E' Septal Velocity 7.8 cm/s Mitral E to LV E' Septal Ratio 11.5
--- NOTE | 2016-10-08 14:11 | PN- Att Addend ---
Attending MD Review Statement Attending Statement Attending MD Statement: examined this patient, discuss w/resident/PA/JANITOR CUSTODIAN, agreed w/resident/PA/JANITOR CUSTODIAN, reviewed EMR data (avail), discussed w/nursing, discussed w/ case mgmt Attending Assessment/Plan: pt being dced home in stable condition. encouraged him to be complaint with meds and quit smoking. D/w pt the care plan. See dc summary for more details.
--- NOTE | 2016-10-08 18:14 | Discharge Summary ---
Visit Information Visit Dates Admission Date: 10/07/16 Discharge Date: 10/08/16 Hospital Course Course Attending Physician: MARINE ANDINO,KATHIA [place] Primary Care Physician: NOELLE ANDINO,SHANT Junior Hospital Course: Patient is a 51-year-old male with significant past medical history of chronic smoking, COPD not on home oxygen, obstructive sleep apnea on CPAP, hypertension, bipolar disorder, anxiety, who presented with chief complaints of progressive shortness of breath, weight gain, bilateral lower extremity edema, increased abdominal girth, orthopnea, paroxysmal nocturnal dyspnea, intermittent headache since last 3 days. According to him, he was not taking his that pressure medication since last 3 days. Vital signs at the time of admission-temperature 96.7, pulse 102, respiratory rate 20, blood pressure 146/82, SPO2 97% on room air Chest x-ray -did not showed any acute cardiopulmonary process. Pertinent labs -hemoglobin 7.9, potassium 3.4, HbA1c 5.4, troponin .01 x 3, d- dimer-214, UA -wnl, urine cannabis->80, ABG -pH 7.46, PO2 78, SPO2 93% Pulmonary congestion secondary to hypertension due to noncompliance with medication On examination the lungs were clear and chest x-ray did not show any florid changes. He was admitted to the telemetry floor for further cardiac monitoring. We started him on his home antihypertensive medication and gave IV Lasix 40 mgs once daily. Serial troponins were negative and EKG showed no any acute changes.We took cardiology consult. They advised for echocardiogram which showed , stage2 diastolic dysfunction, LVEF-66%. He becomes asymptomatic within 24 hours. We did not prescribed Lasix at the time of discharge, as he was asymptomatic and heart functions were with in normal limit. We advised him to follow-up with coding file clerk and director of midwifery/staff midwife as an outpatient. Chronic smoking We advised to quit his smoking and did counseling for it. Allergies: Coded Allergies: NO KNOWN ALLERGIES (04/24/16) Disposition Summary Disposition Principal Diagnosis: Pulmonary congestion secondary to hypertension due to noncompliance with medication Additional Diagnosis: COPD not on home oxygen Chronic smoker Obstructive sleep apnea on CPAP History of hypertension History of hiatal hernia History of anxiety History of bipolar disorder History of anemia Discharge Disposition: home or self care Discharge Instructions General Discharge Information Code Status: Full Code Patient's Diet: Heart healthy diet Patient's Activity: As tolerated Follow-Up Instructions/Appts: Advised to quit smoking Advised to follow-up with director of midwifery/staff midwife within a week of discharge Advised to follow-up with coding file clerk within a week of discharge Advised to take medication as prescribed Medications at Discharge Discharge Medications: Continue taking these medications: Lisinopril/Hydrochlorothiazide (Lisinopril-Hctz 20-25 MG Tab) 20 MG-25 MG TABLET 1 Tablet ORAL DAILY Qty = 30 Comments: Last Taken: 10/08/16 Time: 0930am Albuterol Sulfate (Proair Hfa) 90 MCG HFA.AER.AD 2 Puff Inhale through mouth EVERY 4-6 HOURS NEEDED as needed for COPD Qty = 9 Comments: NOT GIVEN IN HOSPITAL Tiotropium [place] (Spiriva) 18 MCG CAP.W.DEV 1 Capsule Inhale through mouth DAILY Qty = 30 Comments: Last Taken: 10/08/16 Time: 0930am Ondansetron HCl/Pf (Ondansetron HCl 4 MG/2 Ml Vial) 4 MG/2 ML VIAL 4 Milligram ORAL EVERY 8 HOURS NEEDED as needed for NAUSEA/VOMITING Days = 10 Comments: not given Cyanocobalamin (Vitamin B-12) 1,000 MCG TABLET 500 Microgram ORAL DAILY Days = 7 Comments: NOT GIVEN IN HOSPITAL. Omeprazole (Omeprazole) 20 MG CAPSULE.DR 40 Milligram ORAL TWICE DAILY Qty = 120 Comments: Last Taken: 10/08/16 Time: 0930am Sucralfate (Carafate) 1 GRAM TABLET 1 Tablet ORAL 4 TIMES A DAY Qty = 120 Comments: NOT GIVEN IN HOSPITAL. Ondansetron (Zofran Odt) 4 MG TAB.RAPDIS 1 Tablet ORAL EVERY SIX HOURS as needed for NAUSEA Qty = 20 Comments: NOT GIVEN IN HOSPITAL. Olanzapine (Olanzapine) 5 MG TABLET 1 Tablet ORAL Every night Comments: NOT GIVEN IN HOSPITAL. Copies To: TAMMIE ANDINO,BRIGIDO [employer]; SANAZ ANDINO,JODY [place] Attending MD Review Statement Documenting Attending: KATHIA HAWTHORNE MD
== END 2016-10-08 12:10 | DRG 861 ==
LOC: ERH 22:24 → ERHI 10-07 00:16 → ENRESERV 10-07 01:17 → 1NO 10-07 01:57 → ENPENDDIS 10-08 11:38 → 1NO 10-08 12:10
PROVIDERS: Emergency Medicine; Internal Medicine Endocrinology, Diabetes & Metabolism; ADMIT Internal Medicine
PROC: 5A09357 Assistance with Respiratory Ventilation, Less than 24 Consecutive Hours, Continuous Positive Airway Pressure (ICD-10-PCS; principal; 2016-10-07)
DX: R60.0 Localized edema (principal); T46.4X6A Underdosing of angiotensin-converting-enzyme inhibitors, initial encounter; R53.83 Other fatigue; I10 Essential (primary) hypertension; J44.9 Chronic obstructive pulmonary disease, unspecified; F17.200 Nicotine dependence, unspecified, uncomplicated; G47.33 Obstructive sleep apnea (adult) (pediatric); Z91.138 Patient's unintentional underdosing of medication regimen for other reason; F31.9 Bipolar disorder, unspecified; Y92.009 Unspecified place in unspecified non-institutional (private) residence as the place of occurrence of the external cause; K21.0 Gastro-esophageal reflux disease with esophagitis; D50.0 Iron deficiency anemia secondary to blood loss (chronic); F41.9 Anxiety disorder, unspecified
CPT/HCPCS: 1NSP; 36415; 80307; 81003; 82436; 93005; 93010; 93306; 96374; 99291; G0480; J0131; J1940; J3490

== ENCOUNTER 2017-08-29 11:44 | Emergency (ER) | payer OTHER ==
[~2017-08-29] VITALS: Ht 162.6 cm; Wt 77.1 kg
[~2017-08-29 11:44] MED LIST changes: +AMLODIPINE BESYL5 M1 PO; +LASIX20 M1 PO; +OLANZAPINE5 M2 PO; +OXYCODONE HCL5 M1 PO
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
[2017-08-29 13:40] VITALS: BP 138/82
[2017-08-29] MEDS ORDERED: TRAZODONE HCL50 M1 PO (14:23)
[2017-08-29] MEDS ORDERED: GABAPENTIN300 M2 PO (14:23)
--- NOTE | 2017-08-29 14:49 | RADIOLOGY REPORT ---
EXAMINATION: XR LUMBOSACRAL SPINE, X-RAY SACRUM AND COCCYX AND X-RAY LEFT SHOULDER CLINICAL INFORMATION: Status post fall. Pain. COMPARISON: None TECHNIQUE: 4 views of the left shoulder, AP and lateral views of the lumbar spine, AP, lateral and coned-down AP views of the sacrococcygeal spine FINDINGS: LEFT SHOULDER Normal bony mineralization. No evidence of acute fracture or dislocation. Degenerative changes left acromioclavicular joint with osteophyte formation and decrease joint space. Mild degenerative changes inferior glenohumeral joint. LUMBOSACRAL SPINE Mild dextroscoliosis thoracolumbar junction. Vertebral body heights are preserved. Intervertebral disc spaces are also well preserved. Mild degenerative changes with osteophyte formation multiple levels lower thoracic and lower lumbar spine. Facet arthropathy. SACROCOCCYGEAL SPINE Normal bony mineralization. No evidence of acute fracture or dislocation. No bony destructive changes. Degenerative changes bilateral hips. IMPRESSION: 1. No acute osseous abnormality. 2. Mild degenerative multilevel changes.
== END 2017-08-29 15:13 ==
LOC: ERH 11:44
DX: S39.92XA Unspecified injury of lower back, initial encounter (principal); S39.012A Strain of muscle, fascia and tendon of lower back, initial encounter; W18.09XA Striking against other object with subsequent fall, initial encounter; Y93.89 Activity, other specified; Y92.89 Other specified places as the place of occurrence of the external cause
CPT/HCPCS: 72110; 72220; 73030-LT; 96372; J1885

== ENCOUNTER 2017-10-29 02:42 | Emergency (ER) | payer OTHER ==
[~2017-10-29] VITALS: Ht 162.6 cm; Wt 77.1 kg
[~2017-10-29 02:42] MED LIST changes: +GABAPENTIN300 M2 PO; +TRAZODONE HCL50 M1 PO
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
[2017-10-29 02:50] VITALS: BP 146/88
[2017-10-29] MEDS ORDERED: TOBRADEX EYE DRO5 ML OS (03:02)
--- NOTE | 2017-10-29 03:54 | RADIOLOGY REPORT ---
EXAMINATION: XR FOOT, LEFT CLINICAL INFORMATION: Pain after twisting COMPARISON: None TECHNIQUE: AP, lateral, and oblique views of the left foot. FINDINGS: Osseous alignment is anatomic. No acute fracture is seen. There is moderate degenerative change at the metatarsophalangeal joint of the first digit with overlying soft tissue prominence. Mild spurring is noted at the distal tibia. IMPRESSION: No acute findings identified. Degenerative change of the first MTP joint.
== END 2017-10-29 06:30 ==
LOC: ERH 02:42
DX: S93.602A Unspecified sprain of left foot, initial encounter (principal); H10.9 Unspecified conjunctivitis; X58.XXXA Exposure to other specified factors, initial encounter; Y92.9 Unspecified place or not applicable; Y93.9 Activity, unspecified
CPT/HCPCS: 73630-LT

== ENCOUNTER 2017-12-18 21:13 | Observation (INO) | payer OTHER ==
[~2017-12-18] VITALS: Ht 182.9 cm; Wt 106.6 kg
[~2017-12-18 21:13] MED LIST changes: +TOBRADEX EYE DRO5 ML OS
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
[2017-12-18 22:06] LABS: ABSOLUTE BASOPHIL COUNT 0 /CUMM (0.0-0.2); ABSOLUTE EOSINOPHIL COUNT 0.1 /CUMM (0.0-0.7); ABSOLUTE GRANULOCYTE CT 4.1 /CUMM (1.4-6.5); ABSOLUTE LYMPH COUNT 1.9 /CUMM (1.2-3.4); ABSOLUTE MONOCYTE COUNT 0.8 /CUMM (0.10-0.60); BASOPHIL % 0.5 % (0.0-2.0); EOSINOPHIL % 1.8 % (0-5); GRANULOCYTE % 58.9 % (42.2-75.2); HEMATOCRIT 46.8 % (42-52); MEAN CORPUSCULAR HGB 29.5 PG (27.0-31.0); MEAN CORPUSCULAR HGB CONC 33.2 G/DL (33.0-37.0); MEAN CORPUSCULAR VOLUME 89.1 FL (80.0-94.0); MEAN PLATELET VOLUME 7.1 FL (7.4-10.4); PLATELET COUNT 207 /CUMM (130-400); RBC DISTRIBUTION WIDTH 15.4 % (11.5-14.5); RED BLOOD CELL CT 5.26 /CUMM (4.70-6.10); WHITE BLOOD CELL COUNT 6.9 /CUMM (4.8-10.8)
--- NOTE | 2017-12-18 23:00 | CT SCAN REPORT ---
EXAMINATION: CT HEAD WITHOUT CONTRAST CLINICAL INFORMATION: Head injury, laceration. COMPARISON: None TECHNIQUE: Contiguous axial imaging was performed from the skull base to vertex without intravenous administration of contrast. DLP: 613 mGy-cm FINDINGS: There is no evidence of acute intracranial hemorrhage or territorial infarction. No abnormal mass effect or midline shift is seen. Dickerson to white matter differentiation is well preserved. No extra-axial fluid collections are identified. The ventricles are normal in size. There is no abnormal attenuation within the brain parenchyma. The osseous structures and soft tissues are normal. The mastoid air cells and visualized portions of the paranasal sinuses are well aerated. There is mild deformity of medial left orbital wall from old injury. IMPRESSION: No acute intracranial process seen.
[2017-12-19 05:30] VITALS: BP 103/80
== END 2017-12-19 06:02 ==
LOC: ERH 21:13 → ERHI 12-19 00:43
PROVIDERS: Emergency Medicine
DX: F10.129 Alcohol abuse with intoxication, unspecified (principal); R06.00 Dyspnea, unspecified; F12.90 Cannabis use, unspecified, uncomplicated; F17.200 Nicotine dependence, unspecified, uncomplicated; D64.9 Anemia, unspecified; F31.9 Bipolar disorder, unspecified; K50.90 Crohn's disease, unspecified, without complications; K44.9 Diaphragmatic hernia without obstruction or gangrene; J44.9 Chronic obstructive pulmonary disease, unspecified; G47.33 Obstructive sleep apnea (adult) (pediatric); I10 Essential (primary) hypertension; Z79.899 Other long term (current) drug therapy
CPT/HCPCS: 1288; 90471; 90714; 93005; 93010; 96372; 96374; G0378; G0480; J2930